=== PATIENT | female | born 1955 | race Caucasian/White ===

== ENCOUNTER → 2020-04-29 16:37 | Outpatient (CLI) | payer MEDICARE, SELFPAY ==
[2020-04-29 21:58] LABS: Basophils # 0.1 K/mm3 (0-0.2); Basophils % 1.1 % (0.1-2.0); Eosinophils % 0.1 % (0.1-12.0); Hematocrit 51.1 % (37.0-47.0); Hemoglobin 16.2 g/dL (12.2-16.2); Lymphocytes # 1.4 K/mm3 (0.7-4.5); Lymphocytes % 31.3 % (10-50); Mean Corpuscular HGB Conc 31.7 g/dL (31.8-35.4); Mean Corpuscular Hemoglobin 31.6 pg (27.0-31.2); Mean Corpuscular Volume 99.7 fl (81-99); Mean Platelet Volume 8.8 fl (7.4-10.4); Monocytes # 0.6 K/mm3 (0.1-1.0); Monocytes % 13.7 % (1.7-9.3); Neutrophils # 2.4 K/mm3 (1.8-7.8); Neutrophils % 53.8 % (37.0-80.0); Platelet Count 246 K/mm3 (142-424); Red Blood Count 5.13 M/mm3 (4.20-5.40); Red Cell Distribution Width 14.2 % (11.5-17.5); White Blood Count 4.5 K/mm3 (4.8-10.8)
[2020-05-01 14:51] LABS: Covid-19 Nasal PCR Sendout Lex POSITIVE
== END ==
PROVIDERS: PCP Family Medicine; Visit Provider Family Medicine
DX: Z20.828 Contact with and (suspected) exposure to other viral communicable diseases (principal); U07.1 COVID-19
CPT/HCPCS: 36415; 85025; U0004

== ENCOUNTER → 2021-04-16 09:07 | Outpatient (CLI) | payer MEDICARE, SELFPAY ==
--- NOTE | 2021-04-16 | US_ITS ---
PROCEDURE: US TRANSVAGINAL CLINICAL INDICATION: Left lower quadrant pain for 2 weeks, postmenopausal for 10 years COMPARISON: No exams were available for comparison FINDINGS: The uterus is normal in size. There is a scar noted. There is a small amount of fluid within the endometrium. There is no cul-de-sac fluid. Both ovaries appear normal. IMPRESSION: Small amount of endometrial fluid otherwise essentially unremarkable study Dictated by: Dr. Woody Priest MD 04/17/2021 11:36 Dr. Woody Priest MD in [facility] 04/17/2021 11:36
--- NOTE | 2021-04-16 09:11 | US_ITS ---
PROCEDURE: US ABDOMEN COMPLETE CLINICAL INDICATION: LOW ABD PAIN COMPARISON: No exams were available for comparison FINDINGS: ASCITES: Visualized extent of pancreas appears unremarkable. Visualized extent of the liver appears unremarkable. Portal venous flow is in the appropriate direction. There is atherosclerosis of the aorta. Right and left kidneys appear unremarkable. Gallbladder appears unremarkable. Common duct is not dilated. Spleen appears unremarkable. IMPRESSION: Aortic atherosclerosis. Otherwise unremarkable abdominal ultrasound. Dictated by: Lizeth Grant MD 04/16/2021 13:30 Lizeth Grant MD in [facility] 04/16/2021 13:30
== END ==
PROVIDERS: PCP Family Medicine; Visit Provider Family Medicine
DX: R10.30 Lower abdominal pain, unspecified (principal)
CPT/HCPCS: 76700; 76830

== ENCOUNTER → 2023-02-08 14:43 | Outpatient (CLI) | payer MEDICARE, SELFPAY ==
--- NOTE | 2023-02-08 14:58 | MM_ITS ---
PROCEDURE INFORMATION: Exam: MG Bilateral Screening 3D Mammography Exam date and time: 02/08/2023 2:53 PM Age: 67 years old Clinical indication: Screening. No family history of breast cancer. Interval right excisional biopsy, as indicated on images from 11/10/2021. TECHNIQUE: Imaging protocol: Bilateral Screening tomosynthesis and 2D mammography including computer-aided detection (CAD) when performed. COMPARISON: 1. MG MAMMO DIAGNOSTIC DIGITAL TOMOSYNTHESIS BILATERAL W CAD 11/10/2021 9:38 AM 2. MG MAMMO POST CLIP PLACEMENT RIGHT 01/23/2020 8:50 AM 3. MG MAMMO STEREOTACTIC BREAST DEVICE PLACEMENT INITIAL WO BX 01/23/2020 8:33 AM 4. MG MAMMO POST CLIP PLACEMENT RIGHT 12/26/2019 10:51 AM FINDINGS: MAMMOGRAPHY: Breast composition: The breasts are heterogeneously dense, which may obscure small masses. Mass: None. Architectural distortion: None. Calcifications: Extensive scattered punctate calcifications are suggested bilaterally, better seen on the left, these appear similar to 11/10/2021 given difference in technique and positioning. Asymmetric density: None. Skin thickening: None. Axillary adenopathy: None. Other: Prepectoral silicone implants. Bilateral deformed shape and evidence of extracapsular rupture with extracapsular silicone with calcification. IMPRESSION: See comment Limited study, both from positioning and bilateral extracapsular silicone rupture. Correlate with history of prior right excisional biopsy, and unless otherwise clinically indicated, annual screening mammography recommended. A breast MRI may be helpful as supplemental imaging if possible. Notation is made that the patient is scheduled for explantation March 18, 2023. ASSESSMENT: BI-RADS Category 2: Benign
== END ==
PROVIDERS: PCP Family Medicine; Visit Provider Family Medicine
DX: Z12.31 Encounter for screening mammogram for malignant neoplasm of breast
CPT/HCPCS: 77063; 77067